=== PATIENT | male | born 1960 | race Caucasian/White ===

== ENCOUNTER 2020-02-24 13:54 | Emergency (ER) | payer OTHER, SELFPAY ==
--- NOTE | ~2020-02-24 | XR_ITS ---
EXAMINATION: XR knee RT 3V DATE: 02/24/2020 14:51 INDICATION: Right knee injury and pain. TECHNIQUE: 3 views of right knee were obtained. COMPARISON: None. FINDINGS: Bone alignment is normal. No fracture. There is mild tricompartmental osteoarthritis. No kn ee joint effusion. IMPRESSION: 1. Mild right knee osteoarthritis. Reviewed, dictated and finalized at location A.
--- NOTE | ~2020-02-24 | CT_ITS ---
EXAMINATION: CT lumbar spine wo con DATE: 02/24/2020 14:49 INDICATION: Low back pain. Injury. TECHNIQUE: Computed tomography (CT) of the lumbar spine was performed without intravenous contrast. A utomated exposure control and iterative reconstruction technique were employed. The dose-length produ ct was 343.74 mGy-cm. COMPARISON: Lumbar spine radiographs 09/27/2013 FINDINGS: There is 3 degrees dextrocurvature of lumbar spine. Vertebral body heights and intervertebr al disc heights are normal. The following disc levels are specifically discussed: L1-L2: The disc does not extend beyond the endplate margin. There is mild bilateral facet joint osteo arthritis. There is no neural foraminal stenosis. There is no central canal stenosis. L2-L3: The disc does not extend beyond the endplate margin. There is mild bilateral facet joint osteo arthritis. There is no neural foraminal stenosis. There is no central canal stenosis. L3-L4: The disc is bulging. There is mild bilateral facet joint osteoarthritis. There is mild bilater al neural foraminal stenosis. There is mild central canal stenosis. L4-L5: The disc is bulging. There is mild bilateral facet joint osteoarthritis. There is mild bilater al neural foraminal stenosis. There is mild central canal stenosis. L5-S1: The disc does not extend beyond the endplate margin. There is mild bilateral facet joint osteo arthritis. There is no neural foraminal stenosis. There is no central canal stenosis. IMPRESSION: 1. No fracture. 2. Mild lumbar spondylosis. Reviewed, dictated and finalized at location A.
--- NOTE | ~2020-02-24 | CT_ITS ---
EXAMINATION: CT brain wo con DATE: 02/24/2020 14:47 INDICATION: Frontal head injury with abrasions post ground-level fall TECHNIQUE: Computed tomography (CT) of the head was performed without intravenous contrast. Sagittal and coronal reconstructions were performed. The mA was adjusted according to patient size. Iterative reconstruction technique was employed. The dose-length product was 681.00 mGy-cm. COMPARISON: Brain MR dated 04/10/2017 FINDINGS: There are multiple chronic yumiko hole the calvarium as well as a large craniotomy overlying portions o f the right frontal, parietal and temporal lobes with plate and screw fixation. Unchanged leftward de viation of the nose which could be either developmental or related to old healed fractures. No acute fracture. Large region of encephalomalacia at the right frontal lobe with ex vacuo dilation of the fr ontal horn of the right lateral ventricle. There are couple additional small regions of encephalomala nunu, one in the left temporal lobe and 2 in the left frontal lobe. No acute intracranial hemorrhage, acute infarction or abnormal extra axial fluid collection. There is mild scattered white matter hypoa ttenuation consistent with chronic small vessel ischemic disease. Unchanged enlargement of the ventr icles likely related to diffuse cerebral volume loss with more prominent enlargement of the fourth ve ntricle associated with chronic severe bilateral cerebellar atrophy. No mass/mass effect. Mild mucosa l thickening in the right ethmoid and bilateral maxillary sinuses. The orbits and mastoid air cells a re normal. Intracranial calcified cerebral atherosclerosis is noted. IMPRESSION: 1. No acute fracture or acute intracranial process. 2. Large region of right frontal encephalomalacia with overlying craniotomy. 3. Additional smaller regions of encephalomalacia which may be related to old infarcts in the left fr ontal and temporal lobes. 4. Moderate cerebral and severe cerebellar atrophy. 5. Mild scattered white matter hypoattenuation consistent with chronic small vessel ischemic disease. Reviewed, dictated and finalized at location A. IMPRESSION: 1. No acute fracture or acute intracranial process. 2. Large region of right frontal encephalomalacia with overlying craniotomy. 3. Additional smaller regions of encephalomalacia which may be related to old i nfarcts in the left frontal and temporal lobes. 4. Moderate cerebral and severe cerebellar atrophy. 5. Mild scattered white matter hypoattenuation consistent with chronic small ve ssel ischemic disease.
--- NOTE | ~2020-02-24 | CT_ITS ---
EXAMINATION: CT cervical spine wo con DATE: 02/24/2020 14:48 INDICATION: Head injury. Neck pain. TECHNIQUE: Computed tomography (CT) of the cervical spine was performed without intravenous contrast. Automated exposure control and iterative reconstruction technique were employed. The dose-length pro duct was 263.72 mGy-cm. COMPARISON: None FINDINGS: Bone alignment is normal. Vertebral body heights are normal. Intervertebral disc heights ar e normal. There are bulky bridging anterior osteophytes from C2 to C6, consistent with diffuse idiopa thic skeletal hyperostosis (DISH). The following disc levels are specifically discussed: C2-C3: There is mild left uncovertebral joint osteoarthritis. There is mild right and moderate left f acet joint osteoarthritis. There is mild left neural foraminal stenosis. There is mild central canal stenosis. C3-C4: There is ankylosis of the uncovertebral joints without hypertrophy. There is mild bilateral fa cet joint osteoarthritis. There is no neural foraminal stenosis. There is mild central canal stenosis . C4-C5: There is ankylosis of the uncovertebral joints without hypertrophy. There is ankylosis of left facet joint without hypertrophy. There is no neural foraminal stenosis. There is no central canal st enosis. C5-C6: There is ankylosis of the uncovertebral joints without hypertrophy. There is mild bilateral fa cet joint osteoarthritis. There is no neural foraminal stenosis. There is mild central canal stenosis . C6-C7: There is mild right uncovertebral joint osteoarthritis. There is mild bilateral facet joint os teoarthritis. There is no neural foraminal stenosis. There is mild central canal stenosis. C7-T1: There is mild right uncovertebral joint osteoarthritis. There is mild right and moderate left facet joint osteoarthritis. There is mild bilateral neural foraminal stenosis. There is no central ca nal stenosis. IMPRESSION: 1. No fracture. 2. Mild cervical spondylosis. 3. DISH. Reviewed, dictated and finalized at location A.
[2020-02-24 14:01] VITALS: BP 167/92; PULSE 60; RESP 20; TEMP 36.7; O2SAT 98
--- NOTE | 2020-02-24 14:26 | PC.NURSE ---
pt went to xray and ct, could not draw blood at this time.
[2020-02-24] MEDS: SODIUM CHLORIDE 0.9% IV 1,000 ML 999 ML IV CONT (14:56)
[2020-02-24] MEDS: TETANUS,DIPHTHERIA,AC PERTUSSIS ADULT (0.5 ML) BOOSTRIX IM (14:58)
[2020-02-24 15:08] LABS: Basophils Percent Auto 0.5 % (0.2-1.2); Eosinophils Percent Auto 0.5 % (0-4.4); Hematocrit 45.7 % (42.0-52.0); Hemoglobin 15.3 g/dL (14.0-18.0); Immature Granulocyte Absolute 0.02 K/mm3 (0.00-0.031); Immature Granulocyte Percent A 0.3 % (0-0.5); Lymphocytes Absolute Auto 1.33 K/mm3 (0.9-3.2); Lymphocytes Percent Auto 21.2 % (18.3-44.2); Mean Corpuscular HGB Conc 33.5 g/dl (32-36); Mean Corpuscular Hemoglobin 28.6 pg (26-34); Mean Corpuscular Volume 85.4 fl (80-100); Mean Platelet Volume 8.7 fl (7.4-10.4); Monocytes Absolute Auto 0.5 K/mm3 (0.1-0.6); Monocytes Percent Auto 7.2 % (2.6-8.5); Neutrophils Absolute Auto 4.4 K/mm3 (1.3-6.7); Neutrophils Percent Auto 70.3 % (45.5-73.1); Platelet Count Result 194 k/mm3 (150-375); Red Blood Count 5.35 M/mm3 (4.6-6.20); Red Cell Distribution Width 13.4 % (11.5-14.5); White Blood Count 6.3 K/mm3 (4.5-10.0)
[2020-02-24 15:16] LABS: Alanine Aminotransferase 19 U/L (4-50); Albumin Level 4.7 g/dL (3.5-5.1); Alkaline Phosphatase 112 U/L (38-126); Aspartate Amino Transferase 22 U/L (17-59); Bilirubin,Total 0.9 mg/dL (0.2-1.3); Blood Urea Nitrogen 12 mg/dL (9-20); Calcium 9.4 mg/dL (8.4-10.2); Carbon Dioxide 26 mmol/L (22-30); Chloride 101 mmol/L (98-107); Estimated Glomerular Filt Rate > 60; Glucose 98 mg/dL (75-110); Potassium 4.5 mmol/L (3.4-5.0); Sodium 138 mmol/L (137-145)
--- NOTE | 2020-02-24 16:05 | ED.FALL ---
HPI - Fall General Chief Complaint: Fall <Wilder Torres PA-C - Last Filed: 02/24/20 17:18> Stated Complaint: Ground level fall <Wilder Torres PA-C - Last Filed: 02/24/20 17:18> Time Seen by Provider: 02/24/20 14:13 <Wilder Torres PA-C - Last Filed: 02/24/20 17:18> Source: patient <Wilder Torres PA-C - Last Filed: 02/24/20 17:18> Mode of arrival: ambulatory <Wilder Torres PA-C - Last Filed: 02/24/20 17:18> Limitations: no limitations <Wilder Torres PA-C - Last Filed: 02/24/20 17:18> History of Present Illness HPI Narrative: Patient is a 59-year-old male who presents with injuries related to a ground-level fall patient was walking down the stairs when he tripped falling forward patient notes he normally ambulates with a walker and has history of unsteady gait patient is currently being evaluated by primary care for this patient presents from home per EMS with abrasions to the face upper and lower extremities. Patient denies syncope or loss of consciousness. Patient notes aching pain to the right knee face and mild pain at the neck. Patient otherwise denies any illness sick contacts or other complaints and is resting comfortably in the room upon arrival. Patient is unsure as to tetanus status <Wilder Torres PA-C - Last Filed: 02/24/20 17:18> Related Data Allergies/Adverse Reactions: Allergies Allergy/AdvReac Type Severity Reaction Status Date / Time No Known Allergies Allergy Verified 02/24/20 14:11 <Wilder Torres PA-C - Last Filed: 02/24/20 17:18> Review of Systems Review of Systems: All systems reviewed & are unremarkable except as noted in HPI and below <Wilder Torres PA-C - Last Filed: 02/24/20 17:18> [facility] Past Medical History Medical History: Medical History (Updated 02/24/20 @ 16:10 by Wilder Torres PA-C) Unsteady gait <MASSIEL Moore Last Filed: 02/24/20 17:18> Surgical History Surgical History: Surgical History H/O craniotomy <Wilder Torres PA-C - Last Filed: 02/24/20 17:18> Social History Social History: Social History (Updated 02/24/20 @ 16:07 by Wilder Torres PA-C) Smoking status: Never smoker <Wilder Torres PA-C - Last Filed: 02/24/20 17:18> Exam Narrative: Exam Narrative: GENERAL: Well-appearing, well-nourished, and in no acute distress. HEAD: Normocephalic, abrasions to the forehead nasal bridge and face EYES: PERRLA and EOMI. ENT: Nares clear, no rhinorrhea or epistaxis. Mucous membranes moist. Oropharynx without tonsillar hypertrophy exudate or other lesions. NECK: Supple. No adenopathy or masses. CHEST: Clear to auscultation. No respiratory distress. No wheezes rales or rhonchi HEART: Regular rate and rhythm. No murmur heard. Normal peripheral pulses. ABDOMEN: Soft, nontender, nondistended EXTREMITIES: Normal range of motion. No edema. Paraspinal midline cervical tenderness and lumbar tenderness no thoracic tenderness SKIN: Warm, dry, no rash. NEURO: No focal deficits. Alert and oriented x3. Cranial nerves II through XII grossly intact PSYCH: Normal mood and affect. <Wilder Torres PA-C - Last Filed: 02/24/20 17:18> Course Consultations Consultation #1: Spoke with patient's primary care doctor regarding the case the findings patient's desire to go home primary care notes they will follow patient in clinic <Wilder Torres PA-C - Last Filed: 02/24/20 17:18> Date: 02/24/20 <Wilder Torres PA-C - Last Filed: 02/24/20 17:18> Time: 16:08 <Wilder Torres PA-C - Last Filed: 02/24/20 17:18> Vital Signs Vital signs: Vital Signs Temperature 98.0 F 02/24/20 14:01 Pulse Rate 60 02/24/20 14:01 Respiratory Rate 20 02/24/20 14:01 Blood Pressure 167/92 H 02/24/20 14:01 Pulse Oximetry 98 02/24/20 14:01 Temperature 98.0 F 02/24/20 18:05 Pulse Rat
[2020-02-24 16:47] VITALS: BP 142/70; PULSE 74; RESP 20; TEMP 36.7; O2SAT 99
--- NOTE | 2020-02-24 17:30 | PC.NURSE ---
attempted to contact pt family/friends to come get pt. Pt states that his family is all in [place] on vacation. Only emergency contact is a home phone of a family member who is currently on that vacation. Pt does not have his cell phone. RN made call to [place] to attempt to get contact info for pt brother who pt states lives in [place] and should be home. PD unable to find contact info for pt brother, Brice. Pt states that he knows no other contacts to pick him up, states he cannot take a bus or taxi. Pt usually ambulates with a cane which he did not bring with him. RN spoke with sourcing consultant and sourcing consultant states that pt can sit in the waiting room. Pt agrees with plan at this time. Pt brought to the waiting room and educated to speak with bottle blower if he remembers a phone number or thinks of someone else whom we can contact. Pt verbalized understanding.
[2020-02-24 18:05] VITALS: BP 147/74; PULSE 74; RESP 20; TEMP 36.7; O2SAT 99
== END 2020-02-24 18:06 | disposition home or self-care (01) ==
PROVIDERS: Emergency Medicine Emergency Medical Services; Emergency Provider Emergency Medicine; PCP Family Medicine Adolescent Medicine
DX: S00.81XA Abrasion of other part of head, initial encounter (principal); S00.31XA Abrasion of nose, initial encounter; S80.211A Abrasion, right knee, initial encounter; S60.512A Abrasion of left hand, initial encounter; Z23 Encounter for immunization; W10.9XXA Fall (on) (from) unspecified stairs and steps, initial encounter; M17.11 Unilateral primary osteoarthritis, right knee; M47.812 Spondylosis without myelopathy or radiculopathy, cervical region; M48.12 Ankylosing hyperostosis [Forestier], cervical region; M47.816 Spondylosis without myelopathy or radiculopathy, lumbar region
CPT/HCPCS: 36415; 70450; 72125; 72131; 73562; 80053; 85025; 90471; 90715; 96361; 96365; 99284; J0131; J7030

== ENCOUNTER 2020-04-01 11:00 | Outpatient (RCR) | payer OTHER, SELFPAY ==
--- NOTE | 2020-03-05 13:26 | PTOPEVAL ---
PHYSICAL THERAPY EVALUATION AND PLAN OF CARE 03-05-2020 The PT evaluation was completed for the diagnosis of ataxia and decreased balance. His plan of treatment is scheduled for 2x/wk for 4 weeks. Thank you for referring Feliciano to [facility]. Please review, sign, date and return this plan of care [facility]. I agree with and certify that the following plan of care is medically necessary. Referring Physician Date Attending Provider: Shorty Quinn MD *PT Outpatient Evaluation Start: 03/05/20 12:44 Document 03/05/20 12:35 FATOU (Rec: 03/05/20 13:26 FATOU [id number]) Therapy Assessment Status Assessment Status Assessment Status Evaluation Outpatient Past Medical History Past Medical History Source of Past Medical History Patient Neurological History Hx Epilepsy Yes Hx Neurologic Surgery Yes: had brain surgery 1998 Hx Seizures Yes: medication to prevent Cardiovascular History Hx Hypertension Yes: meds Respiratory History Hx Respiratory Disorders No Significant History Gastrointestinal History Hx Gastrointestinal Disorders No Significant History Genitourinary History Hx Genitourinary Disorders No Significant History Musculoskeletal History Hx Back Pain Yes: chronic back pain Endocrine History Hx Endocrine Disorders No Significant History Evaluation Information Problem Diagnosis ataxic gait/ decreased balance Onset August 2019 Subjective Information gradually having more Query Text:As Reported By Patient/ unsteadiness with walking; to [facility]20 due to fall when taking out trash can; not following with neurologist, previously saw neurologist in [facility]; Previous Treatments Previous Treatments For This Problem no PT for balance or walking Prior Level of Function Activity Level (Last 3 Months) Occupation on disability for past 2 years due to epilepsy; worked in [employer] business; Hand Dominance Right Activity of Daily Living Ability Independent Indoor/Home Mobility Independent Community Mobility Independent Stairs Ability Independent Functional Cognition (Planning, Shopping Independent , Taking Medications) Cooking Yes Cleaning Yes Laundry Yes Shopping Yes Driving No Home Setting Home Type Single Level Environmental Barriers Railing, Ascend Right,Stairs, Greater than 4 Living Situation
--- NOTE | 2020-04-01 11:46 | PTOPEVAL ---
PHYSICAL THERAPY DISCHARGE 04-01-2020 Feliciano has received 9 PT sessions, from March 05 to today, for the diagnosis of decreased balance and gait skills. He has made excellent improvements with his mobility--is now using a wheeled walker, instead of the cane and has improved balance, stability, gait pattern, LE strength and control, with a 1# ankle wt when walking. He is independent with his home exercise program and agrees to discharge from PT services. Compared to the initial evaluation: he has improved with walking tolerance distance, Tinetti balance score, 5 reps sit/stand time. The goals were partially achieved, he improved in all areas, except TUG time has increased, due to using the walker, instead of the cane, and slower pace with more control of his legs. Thank you for referring Mr. Hannon to [facility] Please review, sign, date and return this discharge [facility]. I agree with and certify that the following plan of care is medically necessary. Referring Physician Date Attending Provider: Shorty Quinn MD Document 04/01/20 11:10 FATOU (Rec: 04/01/20 11:42 FATOU [id number]) Subjective Information Feliciano and his sister report he Query Text:As Reported By Patient/ is doing well with the walker Family and is moving into a home without stairs next month; has not had any falls and is doing his leg exercises at home; they agree to discharge from PT at this time. Pain Assessment Timing of Pain Assessment Timing of Pain Assessment Assessment Self Report Self Report Pain Level 0 Pain Score Pain Score 0: Self Report Lower Extremity Muscle Strength Testing General Lower Extremity Strength Gross Lower Extremity Strength sitting R and L alternating hip flexion 20 reps with good control and equal speed; standing R and L LE exercises with 3# ankle wt: hip abduction, flex and extension x 20 reps Balance Assessment Tinetti Balance Assessment Sitting Balance Steady, safe Ability to Arise Able, w/o using arms Attempts to Arise Arises on 1st attempt Immediate Standing Balance Steady w/o support Standing Balance Steady, wide stance Nudged Response Steady Standing with Eyes Closed Steady Step Pattern Turning 360 Degrees Continuous steps Stability Turning 360 Degrees Unsteady, grabs/staggers Sitting Down Safe, steady Initiation of Gait No hesitancy Right Foot Step Length Does pass stance foot Right Foot Step Height Completely clears floor Left Foot Step Length Does pass stance foot Left Foot Step Height Completely clears floor Step Symmetry
== END 2020-04-05 14:24 | disposition home or self-care (01) ==
LOC: ANHPT 11:00
PROVIDERS: PCP Family Medicine Adolescent Medicine; Visit Provider Family Medicine Adolescent Medicine
DX: R26.0 Ataxic gait (principal)
CPT/HCPCS: 97110; 97116; 97161

== ENCOUNTER 2020-06-09 13:44 | Emergency (ER) | payer OTHER, SELFPAY ==
[2020-06-09 13:54] VITALS: BP 119/86; PULSE 89; RESP 16; TEMP 36.3; O2SAT 98
--- NOTE | 2020-06-09 14:09 | ED.WOUNDLAC ---
HPI - Wound/Laceration General Chief Complaint: Wound/Laceration Stated Complaint: Laceration to head Time Seen by Provider: 06/09/20 14:02 Source: patient and RN notes reviewed Mode of arrival: other (With walker) Limitations: no limitations History of Present Illness HPI narrative: Patient presents today with a laceration to his right eyebrow. Patient tripped and fell on his tile floor at home at 815 this morning. Denies loss of consciousness. Denies dizziness, lightheadedness, headache, vision changes, nausea or vomiting, blurred vision, or any additional symptoms besides localized pain. He has not tried any [id number] interventions prior to arrival. Is unsure of the date of his last tetanus vaccine. History of epilepsy. Location: face Related Data Home Medications Medication Instructions Recorded Confirmed carbamazepine 200 mg PO BID 06/09/20 06/09/20 lamotrigine 200 mg PO BID 06/09/20 06/09/20 lisinopril 40 mg PO DAILY 06/09/20 06/09/20 Allergies Allergy/AdvReac Type Severity Reaction Status Date / Time No Known Allergies Allergy Verified 06/09/20 13:57 Review of Systems Review of Systems: Narrative: CONSTITUTIONAL: Denies body aches, fever, chills, or sweats. EYES: Denies visual changes, redness, or discharge. ENT: Denies rhinorrhea, congestion, sore throat, or otalgia. CARDIOVASCULAR: Denies chest pain, palpitations, or edema. RESPIRATORY: Denies cough or dyspnea. GASTROINTESTINAL: Denies abdominal pain, nausea, vomiting, or diarrhea. GENITOURINARY: Denies dysuria or hematuria. SKIN: Denies rash, itching. + Laceration to right eyebrow MUSCULOSKELETAL: Denies back pain, joint pain, or myalgia. NEUROLOGIC: Denies headache, numbness, tingling, or weakness. PSYCH: Denies depression or anxiety. [facility] Past Medical History Medical History (Updated 06/09/20 @ 14:40 by Lilia Buchanan, [facility], ) Epilepsy Unsteady gait Surgical History Surgical History H/O craniotomy Social History Social History (Updated 02/24/20 @ 16:07 by Wilder Dougie Young, PA-C) Smoking status: Never smoker Gender identity (if verbalized by the patient): Male Exam Narrative: Exam Narrative: GENERAL: Well-appearing, well-nourished, and in no acute distress. HEAD: Normocephalic. 4 cm full-thickness stellate laceration to the right eyebrow. No active bleeding. EYES: EOMI. PERRL. No pulling or tugging sensation with extraocular movements. No nystagmus. Nontender orbits. No redness or drainage. Conjunctivae normal. ENT: Mucous membranes pink and moist. NECK: Normal AROM. Supple. No lymphadenopathy. Nontender. CHEST: No respiratory distress. MUSCULOSKELETAL: No bony tenderness of spine. EXTREMITIES: Normal range of motion. No edema. SKIN: Warm, dry, no rash. Capillary refill normal. Normal skin turgor. NEURO: No focal deficits. Alert and oriented x3. Gait steady with walker. PSYCH: Normal affect. No signs of depression or anxiety. Course Vital Signs Vital signs: Vital Signs Temperature 97.3 F L 06/09/20 13:54 Pulse Rate 89 06/09/20 13:54 Respiratory Rate 16 06/09/20 13:54 Blood Pressure 119/86 06/09/20 13:54 Pulse Oximetry 98 06/09/20 13:54 Temperature 97.3 F L 06/09/20 13:54 Pulse Rate 89 06/09/20 13:54 Respiratory Rate 16 06/09/20 13:54 Blood Pressure 119/86 06/09/20 13:54 Pulse Oximetry 98 06/09/20 13:54 Reviewed. Pt has been instructed to follow up with his PCP regarding his elevated blood pressure today. Procedures Laceration Laceration 1: Date: 06/09/20 Time: 14:13 Site: face Side (If applicable): right Size (cm): 4 Description: stellate Depth: simple, single layer Local Anesthetic: lidocaine 1% Pre-repair: wound explored and irrigated ====== Skin Level ====== Skin layer closed with: nylon Size (cm): 6-0 Number of cazares
[2020-06-09] MEDS: TETANUS,DIPHTHERIA,AC PERTUSSIS ADULT (0.5 ML) BOOSTRIX IM (14:18)
== END 2020-06-09 14:44 | disposition home or self-care (01) ==
PROVIDERS: Emergency Provider Nurse Practitioner; PCP Family Medicine Adolescent Medicine
DX: S01.111A Laceration without foreign body of right eyelid and periocular area, initial encounter (principal); W01.0XXA Fall on same level from slipping, tripping and stumbling without subsequent striking against object, initial encounter; Z23 Encounter for immunization; G40.909 Epilepsy, unspecified, not intractable, without status epilepticus
CPT/HCPCS: 12013; 90471; 90715; 99212; G0463

== ENCOUNTER 2020-08-30 09:24 | Outpatient (CLI) | payer OTHER, SELFPAY ==
--- NOTE | ~2020-08-30 | MR_ITS ---
EXAMINATION: MR brain/brain stem wo con DATE: 08/30/2020 11:38 INDICATION: Seizure disorder. TECHNIQUE: Magnetic resonance imaging (MRI) of the brain and brainstem was performed without intraven ous contrast. Sequences included sagittal and axial T1-weighted FSE, axial diffusion-weighted FS EPI, axial T2*-weighted GRE, axial T2-weighted FLAIR Propeller, and axial T2-weighted Propeller. Apparent diffusion coefficient (ADC) maps were created. COMPARISON: Brain MRI 04/10/2017 FINDINGS: There are changes of right-sided craniotomy. There is chronic encephalomalacia in right fro ntal lobe. There are areas of chronic encephalomalacia in the left frontal lobe and temporal lobes. T he cerebellum is small. There are scattered areas of nonspecific increased T2-weighted signal intensi ty in the cerebral white matter. There is no intracranial hemorrhage, acute infarction, or abnormal i ntracranial mass lesion. There is ex vacuo dilatation of the right lateral ventricle. The orbits are normal. There is mild mucosal thickening in the ethmoid sinuses. The mastoid air cells are normal. IMPRESSION: 1. Chronic encephalomalacia involving the frontal lobes and temporal lobes, worst in right frontal lo be. 2. Mild nonspecific cerebral white matter disease, which likely represents chronic small vessel ische umm disease. 3. Small cerebellum, likely secondary to long-term antiseizure medication use. Reviewed, dictated and finalized at location A. [employer] IMPRESSION: 1. Chronic encephalomalacia involving the frontal lobes and temporal lobes, wor st in right frontal lobe. 2. Mild nonspecific cerebral white matter disease, which likely represents chronometer assembler alexis small vessel ischemic disease. 3. Small cerebellum, likely secondary to long-term antiseizure medication use.
--- NOTE | 2020-09-01 10:38 | WPDNEUROLOGY ---
Neurology EEG Report General Information Date of Study: 08/30/20 TEST EEG DIAGNOSIS seizure disorder CONDITION OF RECORDING awake drowsy and sleep EEG NUMBER [id number] CLINICAL HISTORY patient reported he used to have seizures but had operation about 20 years ago and does not have anymore. Recently he has been having trouble in walking and balance difficulties. History of craniotomy along the right side of the head. EEG DESCRIPTION Basic resting occipital frequency consists of medium voltage 8 to 9 hertz per 2nd alpha admixed with low to medium voltage 6 to 7 hertz per 2nd theta. Bilateral symmetrical sleep activity seen during sleep. Hyperventilation not done. Photic stimulation produces normal drive. Intermittent right-sided low voltage 3 to 4 hertz per 2nd delta activity is seen during wakefulness. Non paroxysmal. Focal. Lateralizing. IMPRESSION Abnormal record due to the presence of bihemispheric theta activity with right hemispheric dominance of intermittent delta activity. No evidence of any paroxysmal discharge. Suggestive of focal hemispheric abnormalities considering the clinical history could be related to the old craniotomy and surgery for epilepsy
== END 2020-08-30 09:25 | disposition home or self-care (01) ==
PROVIDERS: PCP Family Medicine Adolescent Medicine; Visit Provider Psychiatry & Neurology Neurology
DX: G40.909 Epilepsy, unspecified, not intractable, without status epilepticus (principal); R94.01 Abnormal electroencephalogram [EEG]; G93.89 Other specified disorders of brain
CPT/HCPCS: 70551; 95816

== ENCOUNTER 2022-07-03 00:46 | Day surgery (SDC) | payer OTHER, SELFPAY ==
[2022-06-22 15:20] VITALS: BMI 24.3
[2022-07-03 10:11] VITALS: BP 169/71; PULSE 75; RESP 17; TEMP 36.4; O2SAT 100; BMI 24.7
[2022-07-03] MEDS: LACTATED RINGERS 1,000 ML 150 ML IV CONT (10:24)
--- NOTE | 2022-07-03 10:36 | PM.HPGS ---
History of Present Illness History of Present Illness Consent: Risks, benefits, and alternatives have been discussed and questions answered. Patient agrees to proceed with procedure. Chief complaint: neoplasm screening Narrative: Elias Hannon is a 61 year old male here for first screening colonoscopy Review of Systems Constitutional: Constitutional: Denies headache(s) and Denies weakness Eyes: Eyes: Denies blurry vision ENT: Reports Normal hearing present, Denies headache(s) and Denies neck pain Cardiovascular: Cardiovascular: Denies chest pain and Denies dyspnea Respiratory: Respiratory: Denies dyspnea Gastrointestinal: Gastrointestinal: Reports no additional gastrointestinal complaints Genitourinary: Genitourinary: Denies dysuria Musculoskeletal: Musculoskeletal: Denies neck pain Integumentary/Breasts: Skin/Breast: Denies dry skin Neurologic: Reports Normal hearing present, Denies headache(s) and Denies weakness Psychiatric: Psychiatric: Denies anxiety Endocrine: Endocrine: Denies change in body appearance Hematologic/Lymphatic: Hematologic/Lymphatic: Denies easy bleeding Allergic/Immunologic: Allergic/Immunologic: Denies urticaria PMFSH Past Medical History Medical History (Updated 07/03/22 @ 10:36 by Aramis Duke MD) Encounter for screening colonoscopy Epilepsy Unsteady gait Surgical History Surgical History H/O craniotomy Family History Family History (Updated 05/25/22 @ 10:54 by Shorty Quinn MD) Father Carcinoma of colon Social History Social History (Updated 05/25/22 @ 10:00 by Bijal Smallwood) Smoking packs per day: 1 Smoking cigarettes per day: 20.0 Years smoked: 10 Smoking pack-years: 10.00 Smoking status: Former smoker Tobacco type: cigarettes Second hand tobacco smoke exposure: No Additional smoking assessment comments: quit 2016 Alcohol intake: current Alcohol use details: Rarely Substance use: current Substance use type: does not use Living arrangements: alone Additional occupation/education comments: Disability Gender identity (if verbalized by the patient): Male Spiritual care concerns: No Meds Home Medications and Allergies Home Medications Medication Instructions Recorded Confirmed Type carbamazepine 200 mg tablet 200 mg PO BID #180 tabs 05/25/22 07/03/22 Rx lamotrigine 200 mg tablet 200 mg PO BID #180 tabs 05/25/22 07/03/22 Rx lisinopril 40 mg tablet 40 mg PO DAILY #90 tabs 05/25/22 07/03/22 Rx meloxicam 15 mg tablet 15 mg PO DAILY #30 tabs 05/25/22 07/03/22 Rx Allergies Allergy/AdvReac Type Severity Reaction Status Date / Time No Known Allergies Allergy Verified 07/03/22 10:09 Vital Signs Vital Signs - 24 hr 07/03/22 10:11 Temperature 97.5 F L Pulse Rate 75 Respiratory Rate 17 Blood Pressure 169/71 H Pulse Oximetry 100 Oxygen Delivery Room Air Exam Const: General: comfortable and no acute distress HENMT: Face/Nose/Sinus: Normal nares present Eyes: General: appearance normal, both eyes and all related structures Neck: Neck: no JVD Resp: Auscultation: clear to auscultation bilaterally Cardio: Rate: regular rate Rhythm: regular rhythm GI: Inspection: non-distended GI Palp: Yes Soft to palpation Skin: General skin exam: normal color Neuro: General: oriented to person, oriented to place and oriented to time Speech: normal speech Extrem: General: normal to inspection Psych: Mental Status: mental status grossly normal Assessment and Plan Assessment and plan (1) Encounter for screening colonoscopy: Code(s): Z12.11 - Encounter for screening for malignant neoplasm of colon Status: Acute Assessment and Plan: colonoscopy
--- NOTE | 2022-07-03 10:42 | P.PNAN_ITS ---
Anes - Initial Pre Proc Eval Procedure: Operation Date: 07/03/22 11:30 Proposed Procedures p Screening Colonoscopy - Aramis Duke MD Date/Time: 07/03/22 10:42 Surgeon: Aramis Duke MD Pre Op Diagnosis: neoplasm screening Patient Data Age: 61 Gender: M Height: 1.7 m Weight: 71.8 kg Last Vital Signs Temp 97.5 F L 07/03/22 10:11 Pulse 75 07/03/22 10:11 Resp 17 07/03/22 10:11 BP 169/71 H 07/03/22 10:11 Pulse Ox 100 07/03/22 10:11 O2 Del Method Room Air 07/03/22 10:11 Allergies Allergy/AdvReac Type Severity Reaction Status Date / Time No Known Allergies Allergy Verified 07/03/22 10:09 Home Medications Medication Instructions Recorded Confirmed Type carbamazepine 200 mg tablet 200 mg PO BID #180 tabs 05/25/22 07/03/22 Rx lamotrigine 200 mg tablet 200 mg PO BID #180 tabs 05/25/22 07/03/22 Rx lisinopril 40 mg tablet 40 mg PO DAILY #90 tabs 05/25/22 07/03/22 Rx meloxicam 15 mg tablet 15 mg PO DAILY #30 tabs 05/25/22 07/03/22 Rx Patient hx anesthesia problems: none Family hx anesthesia problems: none Results Review: All pre-operative results and documents have been reviewed as part of the pre- operative evaluation. [facility] Past Medical History Medical History (Updated 07/03/22 @ 10:36 by Aramis Duke MD) Encounter for screening colonoscopy Epilepsy Unsteady gait Surgical History Surgical History H/O craniotomy Family History Family History (Updated 05/25/22 @ 10:54 by Shorty Quinn MD) Father Carcinoma of colon Social History Social History (Updated 05/25/22 @ 10:00 by Bijal Smallwood) Smoking packs per day: 1 Smoking cigarettes per day: 20.0 Years smoked: 10 Smoking pack-years: 10.00 Smoking status: Former smoker Tobacco type: cigarettes Second hand tobacco smoke exposure: No Additional smoking assessment comments: quit 2016 Alcohol intake: current Alcohol use details: Rarely Substance use: current Substance use type: does not use Living arrangements: alone Additional occupation/education comments: Disability Gender identity (if verbalized by the patient): Male Spiritual care concerns: No Anes - Eval Final PreProcedure Day of Procedure 07/03/22 10:42 Patient weight: normal Heart: regular rate and rhythm Lungs: clear to auscultation Airway: Mallampati scale class II Neurological: alert and oriented Last oral intake: >/= 8 hours ASA classification: III Emergent: no Anesthetic plan: proceed Anesthesia type and monitoring: general GIVS and standard monitoring Results Review: All pre-operative results and documents have been reviewed as part of the pre- operative evaluation. Informed Consent: The patient's anesthetic plan and its attendant risks and benefits were discussed with the patient/family/POA. Questions were solicited and answers provided to the satisfaction of the patient/family/POA.
[2022-07-03 11:09] VITALS: BP 116/68; PULSE 62; RESP 16; O2SAT 100
[2022-07-03 11:19] VITALS: BP 125/73; PULSE 60; RESP 16; O2SAT 100
[2022-07-03 11:29] VITALS: BP 137/86; PULSE 64; RESP 16; O2SAT 100
== END 2022-07-03 11:50 | disposition home or self-care (01) ==
PROVIDERS: PCP Family Medicine Adolescent Medicine; Visit Provider Internal Medicine Gastroenterology
PROC: 0DJD8ZZ Inspection of Lower Intestinal Tract, Via Natural or Artificial Opening Endoscopic (ICD-10-PCS; CPT 45378; principal; 2022-07-03 11:30)
DX: Z12.11 Encounter for screening for malignant neoplasm of colon (principal); D12.4 Benign neoplasm of descending colon; D12.5 Benign neoplasm of sigmoid colon; K64.8 Other hemorrhoids; G40.909 Epilepsy, unspecified, not intractable, without status epilepticus; Z87.891 Personal history of nicotine dependence
CPT/HCPCS: 45378; 88305; J2704; J7120

== ENCOUNTER 2023-08-02 13:15 | Outpatient (RCR) | payer OTHER, SELFPAY ==
--- NOTE | 2023-07-02 13:39 | PTOPEVAL1 ---
Assessment and note entered by Mahamed Roberts, PT Evaluation Information Assessment Status Evaluation Diagnosis Ataxic gait, LE weakness, Unsteady gait Onset 5+ years of decreased balance Subjective Information Patient denies any falls in the past year. States that he has not been dong much but also has not been having seizures for a long time. Reports that he has been fluctuating through a lot of different medicines to help control seizures and issues. No stairs in home. Lives alone and does not currently drive. Reports tat he has no desire to switch to a walker, his sister already tried it with him. Feels too restricted with a walker. Does not feel he can walk too far safely. Reported Pain Level Pain Score 0: Self Report Assessment PT Clinical Summary Patient presents as fairly hgh fall risk. Exercise and activity were all performed with contact guarding this date to protect from falls. Does not demonstrate significant weakness in legs this date but some weakness in hips noted. Greatest deficit is in balance and coordination of feet during functional activity. I do feel he is best suited to use a 2 wheeled walker or [place] but will need to be convinced to do so. Will benefit from skilled therapy to address listed deficits emphasizing balance to prevent falls. Plan of Care Interventions Gait Training,Neuro Re-education,Patient/Caregiver Educati,Therapeutic Activities,Therapeutic Exercise PT Services Indicated Yes Treatment Frequency and 2x/week for 4 weeks Duration These treatments will address the objective and functional deficits as defined above. The patient will be advanced safely and appropriately in order for the patient to progress towards his/her prior level of function. Additional exercises will be introduced and as well as a comprehensive home exercise program upon discharge, if needed, ?to ensure carryover of functional gains achieved in the clinic. This treatment plan has been reviewed and agreement upon by the patient.
--- NOTE | 2023-08-02 14:23 | PTOPDC ---
Assessment and note entered by Mahamed Roberts, PT Evaluation Information Assessment Status Discharge Diagnosis Ataxic gait, LE weakness, Unsteady gait Onset 5+ years of decreased balance Subjective Information Patient reports that he feels he is doing a lot better. He has been consistently using a wheeled walker comfortably. Feels his strength and endurance have improved. Realizes that he is still having some balance issues when outside of the walker, but would like to take some time off from therapy and resume in the spring as needed. Family is in agreement. Reported Pain Level Pain Score 2: Self Report Assessment PT Clinical Summary Patient made significant progress with Tinetti scores and hip strength. He was able to complete 2 minute walk test in 2 wheeled walker without need for contact guard. Overall he still shows some balance deficits outside of walker but has been using consistently and has been reinforced by PT and family and I feel he will be compliant. Suitable for discharge at this time to [facility]. Plan of Care PT Services Indicated D/C to [facility]
--- NOTE | 2023-08-02 14:24 | OPREHPOC ---
Outpatient Therapy Plan of Care This is a Multidisciplinary Plan of Care that may contain components documented by all disciplines (PT, OT, and ST.) PT Problem 1 PT Problem #1 Knowledge Deficit PT Goal 1 Goal Independent with home hip conditioning and strengthening program Target Visit 4 Progress Met PT Problem 2 PT Problem #2 Impaired Strength PT Goal 1 Goal Improve rommel hip abduction strength to 4+/5 to improve lateral stability with gait and ADLs Target Visit 8 Progress Met PT Problem 3 PT Problem #3 Impaired Balance PT Goal 1 Goal Demonstrate 7 point improvement in Tinetti score to reduce fall risk Target Visit 8 Progress Met Comment 12 point improvement PT Goal 2 Goal Demonstrate ability to maintain Tandem stance for 30s without loss of balance to improve lateral trunk stability with ADLs. Target Visit 8 Progress Met PT Problem 4 PT Problem #4 Impaired Gait PT Goal 1 Goal Demonstrate ability to ambulate 400' with no LOB for short distance community ambulation improvement. Progress Met Comment With use fo 2 wheeled walker
== END 2023-08-02 14:37 | disposition home or self-care (01) ==
LOC: ANHPT 13:15
PROVIDERS: PCP Family Medicine Adolescent Medicine; Visit Provider Family Medicine Adolescent Medicine
DX: R26.0 Ataxic gait (principal)
CPT/HCPCS: 97110; 97112; 97116; 97161; 97530

== ENCOUNTER 2024-12-02 09:30 | Outpatient (CLI) | payer OTHER, SELFPAY ==
--- NOTE | ~2024-12-02 | XR_ITS ---
MODIFIED ESOPHAGRAM HISTORY: Dysphagia. TECHNIQUE: Modified barium esophagram was performed on 12/02/2024. I administered fluoroscopy and perf ormed the exam with speech pathologist. Patient was seated for lateral fluoroscopic imaging for larisa stion of thin liquids, pudding, solids and quantified amounts, followed by thin liquids in uncontroll ed amounts. This was recorded on tape. A single fluoroscopic spot image was also recorded. The DAP fo r this procedure was 0.942 Gycm2. The amount of fluoroscopy time used during this procedure was 1.7 m inutes. FINDINGS: Oral stage: Adequate function. Pharyngeal stage: Single episode of flash laryngeal penetration which rapidly cleared without aspirat ion. There are confluent bulky bridging anterior osteophytes from C2 through C6 consistent with diffu se idiopathic skeletal hyperostosis which exerts mass effect upon the posterior wall of the pharynx. Cervical/esophageal stage: Adequate function. IMPRESSION: Single episode of flash laryngeal penetration without aspiration. Please correlate with speech pathologist findings and specific feeding recommendations. Reviewed, dictated and finalized at location A. IMPRESSION: Single episode of flash laryngeal penetration without aspiration. Please correlate with speech pathologist findings and specific feeding recommen dations.
--- NOTE | 2024-12-02 11:23 | REHSTMBS ---
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 He was alert & oriented, and able to follow commands. He is currently on a regular diet and reports difficulty in that sometimes (solids) won't go down; he stated he can't recall for how long but thinks it's possibly been occurring for a year. Pt reported h/o epilepsy and a craniotomy in 1998. He denies h/o pneumonia or other pulmonary issues and denied GI issues. The patient was seated for a lateral view. Immediately upon fluoro, large bridging osteophytes were noted throughout the cervical column more prominent at C3/4. Pt was presented with 5cc of thin liquid barium via a spoon, pudding consistency barium via a spoon, a cracker coated with barium pudding via spoon, and an uncontrolled thin liquid barium bolus. This was presented via a cup and a straw. Oral preparatory and oral phase symptoms: none. Pharyngeal phase symptoms: due to the large bridging osteophytes, it appeared as though the epiglottis could not fully invert. This, however, appeared to be without effect. One instance of flash penetration was exhibited with the thin liquids when taken via a straw but it was cleared quickly without aspiration risk. Esophageal stage symptoms: none. No aspiration occurred. Impressions: Overall, the patient presents with functional swallow ability; however, large bridging osteophytes were exhibited; at this time they are without effect. No aspiration occurred. Recommendations: regular diet; regular liquids small bites chew food very well.
== END 2024-12-02 09:31 | disposition home or self-care (01) ==
LOC: ANHIMG 09:34
PROVIDERS: PCP Family Medicine Adolescent Medicine; Visit Provider Family Medicine Adolescent Medicine
DX: R13.10 Dysphagia, unspecified (principal)
CPT/HCPCS: 92611